=== PATIENT | female | born 1975 | race Caucasian/White ===

== ENCOUNTER 2016-10-28 10:39 | Inpatient (IN) | payer OTHER ==
[~2016-10-28] VITALS: Ht 162.6 cm; Wt 158.0 kg
[2016-10-28] VITALS (12 sets, daily range): BP systolic 89–121; BP diastolic 58–77
--- NOTE | ~2016-10-28 | EKG ---
[address] [place] [address] ELECTROCARDIOGRAM REPORT Name: NATTY ASENCIO Room #: 240-P ADM IN M.R.#: [id number] Admission: 10/28/16 Attend Phys: Shoaib Guy Discharge: Date of : 73 Report #: [id number] THIS REPORT FOR: //name// [facility] ED Test Date: 2016-10-28 Test Time: 10:44:59 Pat Name: NATTY ASENCIO Department: Room: 240 P Gender: F Clothing Designer: FLORECITA : 1975 Requested By: Shoaib Guy Order Number: [id number] MD: Measurements Intervals [place] Rate: 81 P: 20 KS: 145 QRS: -45 QRSD: 96 T: 35 QT: 409 QTc: 475 Interpretive Statements Sinus rhythm Left anterior fascicular block Borderline low voltage, extremity leads Nonspecific T abnormalities, anterior leads No previous ECG available for comparison [email or web address] By: 1044 1044 Epiphany Epiphany, /EPI
--- NOTE | ~2016-10-28 | EKG ---
[address] [place] [address] ELECTROCARDIOGRAM REPORT Name: NATTY ASENCIO Room #: 240-P ADM IN M.R.#: [id number] Admission: 10/28/16 Attend Phys: Shoaib Guy Discharge: Date of : 73 Report #: [id number] THIS REPORT FOR: //name// [facility] ED Test Date: 2016-10-28 Test Time: 10:44:59 Pat Name: NATTY ASENCIO Department: Room: 240 P Gender: F Rating Officer: FLORECITA : 1975 Requested By: Suri Lorenzo Order Number: [id number] MD: Scott Washington Measurements Intervals [place] Rate: 81 P: 20 WA: 145 QRS: -45 QRSD: 96 T: 35 QT: 409 QTc: 475 Interpretive Statements Sinus rhythm Left anterior fascicular block Borderline low voltage, extremity leads Nonspecific T abnormalities, anterior leads No previous ECG available for comparison Electronically Signed On 10-30-2016 10:51:07 HAND PROFILER by Scott Washington [email or web address] <ELECTRONICALLY SIGNED> By: Scott Washington MD 10/30/16 1051 1044 1044 Scott Washington MD /ANDREA
--- NOTE | ~2016-10-28 | HC ---
[facility] [place] [address] CONSULTATION Name: NATTY ASENCIO Room #: 240-P [facility] IN M.R.#: [id number] Admission: 10/28/16 Attend Phys: Shoaib Guy Discharge: Date of : 73 Report #: [id number] THIS REPORT FOR: //name// CC: David Hurtado Shoaib Guy DATE OF SERVICE: 10/28/2016 PRIMARY CARE PHYSICIAN: None. REFERRAL PHYSICIAN: Shoaib Guy MD REASON FOR REFERRAL: Acute respiratory failure. HISTORY OF PRESENT ILLNESS: The patient is a 40-year-old white female who was brought to the Emergency Room with progressive dyspnea. She is a detention resident. A pulmonary consultation was requested. The patient cannot give any history due to hypersomnolence. According to the health care personal from [facility], the patient has had symptoms for the past week with progressive cough, chest pain and dyspnea. Review of records suggests the patient has a history of chronic respiratory failure. She has had a tracheostomy in the past, which was discontinued. She was last hospitalized at [facility] about a year ago in 10/2015. At present, she is tolerating CPAP. Her tracheostomy site appears to be partially patent. Otherwise, the patient is not able to give any history. PAST MEDICAL HISTORY: Remarkable for history of COPD with chronic respiratory failure, had a chronic tracheostomy apparently decannulated at some point in time since 10/2015, morbid obesity, presumed sleep apnea, probable obesity hypoventilation, diabetes mellitus type 2, schizoaffective disorder, bipolar disorder, borderline personality disorder, dyslipidemia. PAST SURGICAL HISTORY: As mentioned above, status post prior tracheostomy in the past. ALLERGIES: TO HALDOL, REACTIONS UNSPECIFIED. MEDICATIONS: From the detention include, Combivent, Cogentin, Cymbalta, Pepcid, Neurontin, Detrol, gemfibrozil, Glucophage, Respirdal, Lasix, Coumadin, Lexapro, potassium supplements, olanzapine, Topamax, clonazepam, Ultram, aspirin, Flonase, lisinopril, Claritin, Depakote and Senokot S. [facility] [address] [place] [address] CONSULTATION Name: NATTY ASENCIO Room #: 240-P [facility] IN M.R.#: [id number] Admission: 10/28/16 Attend Phys: Shoaib Guy Discharge: Date of : 73 Report #: [id number] FAMILY HISTORY: Noncontributory. SOCIAL HISTORY: The patient is the state, she is a detention resident. There is no history of tobacco or alcohol use. MEDICAL DIRECTIVE: She is a full code blue according to records. Her DPOA is state administrative. REVIEW OF SYSTEMS: Deferred as the patient is quite somnolent at this time. PHYSICAL EXAMINATION: VITAL SIGNS: Temperature is 97.5 degrees Fahrenheit, pulse is 80, respiratory rate is 20, blood pressure is 109/62 mmHg, saturation is 98%. HEENT: Normocephalic, atraumatic. NECK: She does have old tracheostomy site that is partially patent. Scar tissues are noted. CHEST: Breath sounds are distant, fair breath sounds, no wheezes. No rales anteriorly. CARDIOVASCULAR: Heart sounds are distant. No obvious murmurs or gallop. Pulses are 2+/4+ bilaterally. BREASTS: Exam deferred. ABDOMEN: Obese, soft, nontender, no organomegaly or masses felt. RECTAL: Deferred. EXTREMITIES: There is no cyanosis or clubbing, but remarkable. 2+/4+ bilateral pretibial edema. LABORATORY DATA: Arterial blood gas on admission revealed pH 7.28, pCO2 80, pO2 of . WBC is 7000, hemoglobin is 14.1. Electrolytes are normal. Chest x-ray shows bilateral infiltrates, cardiomegaly, small lung volumes. No obvious effusion seen. IMPRESSION: 1. Acute on chronic hypercapnic hypoxic respiratory failure in this 40-year-old morbidly obese white female. Chest x-ray shows bilateral lower lobe infiltrates. She has sleep apnea with probable obesity hypoventilation syndrome. She is somnolent. She has a history of COPD with chronic respiratory failure. The cause of the patient's problem on this admission is likely related to heart failure, possible pneumonia. Underlying obstructive sleep apnea and obesity hypoventilation is likely contributing. 2. Morbid obesity with obesity hypoventilation syndrome. It is unclear if she is on noninvasive positive pressure at a detention. 3. Chronic respiratory failure. Given her multi comorbid conditions including COPD disorder, I recommended we revise tracheostomy and replace tracheostomy tube to assist her in ventilation. She will likely have recurrent respiratory impairment in the future. [facility] [address] [place] [address] CONSULTATION Name: NATTY ASENCIO Room #: 240-P [facility] IN M.R.#: [id number] Admission: 12/28/16 Attend Phys: Shoaib Guy Discharge: Date of : 73 Report #: [id number] 4. History of COPD. We will continue bronchodilators. There is no obvious evidence of exacerbation at this time. 5. Cardiomegaly by chest x-ray. Echocardiogram from 10/2015 showed ejection fraction of 55%, grade 2 diastolic dysfunction, aortic valve being normal, mitral valve was normal, pulmonary artery pressure was not evaluated. 6. Schizoaffective disorder with bipolar component along with borderline personality disorder. 7. Diabetes mellitus type 2. RECOMMENDATION AND DISCUSSION: Agree with noninvasive positive pressure ventilation. We will also continue diuretics, stop broad spectrum antibiotics along with corticosteroids and bronchodilators. I would recommend consulting ENT to revise her tracheostomy site and place a tracheostomy given a history of recurrent respiratory failure along with multi comorbid conditions. DVT and GI prophylaxis is recommended. Thank you for this consultation. <ELECTRONICALLY SIGNED> By: Dhruv Yap MD 10/30/16 1628 1546 2219 Dhruv Yap MD /nt
--- NOTE | ~2016-10-28 | HC ---
[facility] [place] [address] CONSULTATION Name: NATTY ASENCIO Room #: 240-P [facility] IN M.R.#: [id number] Admission: 10/28/16 Attend Phys: Shoaib Guy Discharge: Date of : 73 Report #: [id number] THIS REPORT FOR: //name// CC: David Yap MD DATE OF SERVICE: 10/29/2016 REASON FOR CONSULTATION: Possible tracheostomy revision. HISTORY OF PRESENT ILLNESS: The patient is a 40-year-old female admitted through the emergency room to the ICU with progressive dyspnea. She has a and is a skilled nursing resident. The patient had evidently symptoms of progressive lower respiratory symptoms for the past week and has a history of chronic respiratory failure. Per the patient as there are no outside records available, she has had a previous tracheostomy. The patient describes having a single cannula or tracheostomy tube with probably having a talking valve. She believes that the tracheostomy was discontinued within the last year. No notes available to determine if the patient is chronically on oxygen. PAST MEDICAL HISTORY: Probably notable for COPD and obstructive sleep apnea and at least hypercapnia. The concern is whether she would benefit from a revision of her tracheostomy. The patient has not had history of tobacco abuse or chronic bronchitis and appears to have no issues with eating, drinking water and maintaining good control of her secretions. Presently, she is in the ICU with nasal oxygen cannula running at 7 liters, saturating well and able to carry on a conversation without dyspnea. Her past medical history is notable for the above tracheostomy as well as the morbid obesity, type 2 diabetes, schizoaffective disorder, dyslipidemia and borderline personality disorder. ALLERGIES: She has an allergic reaction to HALDOL. PRESENT MEDICATIONS: Reviewed on the patient's medication list. SOCIAL HISTORY: Notable for no known history of tobacco or alcohol use. PAST SURGICAL HISTORY: No known past surgical history in the neck aside from the tracheostomy. PHYSICAL EXAMINATION: VITAL SIGNS: Taken from the hospital berry. She is afebrile, normotensive, adequately saturation, respiratory rate is 18 and she is not dyspneic. HEENT: Reveals her to be morbidly obese. NECK: The anterior neck demonstrates a rather prominent tracheostomy scar in a [address] [address] CONSULTATION Name: NATTY ASENCIO Room #: 240-[facility] IN M.R.#: [id number] Admission: 10/28/16 Attend Phys: Shoaib Guy Discharge: Date of : 73 Report #: [id number] vertical line. 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 No palpable masses noted in the midline. Oral cavity and oropharynx are unremarkable for any abnormalities. Remainder of the anterior neck palpation normally. LABORATORY DATA: Presently, sodium of 141, potassium of 4.8, CO2 is 37 and BUN of 21. PT was at 18.8 with a 1.8 INR, slightly out of reference range. Last ABG done yesterday with a pH of 7.3 with pO2 of 85, although she was on higher support at that time. Hemoglobin of 13.6; hematocrit of 40.4; normal white count and platelet count is 187,000. ASSESSMENT AND PLAN: The patient with a history of more recently acute with chronic hypercapneic and hypoxic respiratory failure and a morbidly obese female with lower lobe infiltrates present. She is no longer somnolent and at this time that she was on presentation yesterday. I certainly believe that revision of her tracheostomy would be reasonable to assist her ventilation. This will require general anesthetic and I will need to communicate with the referring doctor instead her lower pulmonary infectious condition as well as her cardiac condition will permit her to undergo this somewhat elective procedure. Possibly due to her large size, I will need to check and make sure availability for extra long trachs are available in this hospital setting before scheduling the procedure. Thank you for the consultation. <ELECTRONICALLY SIGNED> By: Draren Soares MD 10/30/16 0737 1652 0342 Darren Soares MD /lupe
--- NOTE | ~2016-10-28 | 2DMMODE ---
[facility] [place] [place] [address] 2 D/M-MODE ECHOCARDIOGRAM Name: NATTY ASENCIO Room #: 240-P [facility] IN M.R.#: [id number] Admission: 10/28/16 Attend Phys: Shoaib Kulkarni Discharge: Date of : 73 Date of Service: 10/29/16 0836 Report #: [id number] THIS REPORT FOR: //name// Transthoracic Echocardiography Ordering physician: Shoaib Guy Referring physician: David Hurtado Jetinder Singh Speech Scientist: LOLA Anderson Indications/History: COPD, SOA, DM, HLP, Morbid obesity. BP: 106 / HR: 80bpm Height: 64in Weight: 347.3lb 56 Study data: M-mode, complete 2D, complete spectral Doppler, and color Doppler. Location: Bedside. Routine. Image quality was poor. The study was technically limited due to poor acoustic window availability, restricted patient mobility, the tracheostomy, and body habitus. Intravenous contrast (Definity) was administered. 2D measurements Normal Normal LVID ED 46.2mm 36-57 IVS ED 10.7mm 6-11 LVID ES 30.4mm 23-40 LVPW ED 10.1mm 6-11 LA volume index 16-28 AoRoot diam ED 32.5mm 21-37 LVOT diameter 18-23 Findings: Left ventricle: The cavity size was normal. Wall thickness was normal. Systolic function was normal. The estimated ejection fraction was in the range of 60% to 65%. Wall motion was normal. Right ventricle: The cavity size was normal. Systolic function was normal. Right atrium: The atrium was normal in size. Left atrium: The atrium was normal in size. Aortic valve: Structurally normal valve. Doppler: There was no stenosis. No regurgitation. Peak velocity: 110.3cm/s (S). [facility] [address] [place] [address] 2 D/M-MODE ECHOCARDIOGRAM Name: NATTY ASENCIO Room #: 240-P [facility] IN M.R.#: [id number] Admission: 10/28/16 Attend Phys: Shoaib Kulkarni Discharge: Date of : 73 Date of Service: 10/29/16 0836 Report #: [id number] Mitral valve: Structurally normal valve. Doppler: There was no evidence for stenosis. No regurgitation. Peak E-wave velocity: 84.5cm/s. Peak gradient: 2.9mm Hg (D). Peak A-wave velocity: 77.8cm/s. Tricuspid valve: Structurally normal valve. Doppler: There was no evidence for stenosis. No regurgitation. Pulmonic valve: Structurally normal valve. Doppler: There was no evidence for stenosis. No regurgitation. Pericardium: There was no pericardial effusion. Aorta: Aortic root: The aortic root was normal in size. Pulmonary artery: Pressure could not be reliably determined due to minimal or absent tricuspid insufficiency jet, but pulmonary hypertension was not suggested. Diastolic function: Normal diastolic function. Systemic veins: Inferior vena cava: The vessel was dilated; the respirophasic diameter changes were blunted (< 50%). Conclusions 1. Procedure narrative: Image quality was poor. The study was technically limited due to poor acoustic window availability, restricted patient mobility, the tracheostomy, and body habitus. Intravenous contrast (Definity) was administered. 2. Left ventricle: The cavity size was normal. Wall thickness was normal. Systolic function was normal. The estimated ejection fraction was in the range of 60% to 65%. 3. Right ventricle: The cavity size was normal. 4. Right atrium: The atrium was normal in size. 5. Aortic valve: Structurally normal valve. 6. Mitral valve: Structurally normal valve. 7. Pulmonary arteries: Pressure could not be reliably determined due to minimal or absent tricuspid insufficiency jet, but pulmonary hypertension was not suggested. 8. Inferior vena cava: The vessel was dilated; the respirophasic diameter changes were blunted (< 50%). <ELECTRONICALLY SIGNED> By: Davide Lai MD 10/29/161921 0836 21 Davide Lai MD /roger
[~2016-10-28 10:39] MED LIST: ASPIRIN EC81 M1 PO; AUGMENTIN 875875 MG PO; BENZTROPINE MES1 MG PO; CLARITIN10 MG PO; COMBIVENT INH; CYMBALTA30 MG PO; DEPAKOTE 250MG250 M1 PO; DETROL LA4 MG PO; DUONEB 2.5-0.5 M3 ML INH; ENOXAPARIN100 MG/11 SUBQ; ENOXAPARIN80 MG/0.1 SUBQ; FLOMAX0.4 MG PO; FLONASE 0.05%50 MCG NASAL; GABAPENTIN 100100 MG PO; GEMFIBROZIL 60600 M1 PO; GLUCAGEN1 MG IM; LASIX 20 MG TAB20 MG PO; LEVAQUIN 250 M250 MG PO; LOPERAMIDE 2 MG2 M1 PO; LORAZEPAM 22 MG/1 ML IM; LORAZEPAM 2MG TA2 M1 PO; METFORMIN HCL500 MG PO; MUCINEX600 MG PO; MUCUS RELIEF400 MG PO; NEURONTIN 300300 M1 PO; OLANZAPINE5 MG PO; OMEPRAZOLE 20 M20 M1 PO; ONDANSETRON HCL4 M2 PO; OXCARBAZEPINE300 MG PO; PEPCID20 MG PO; PREDNISONE 20 M20 MG PO; PRINIVIL20 M1 PO; PRINIVIL20 MG PO; RISPERDAL37.5 MG/2 IM; RISPERDAL4 M1 PO; SENEXON-S TABL1 EACH PO; SENOKOT-S1 TA1 PO; TOPAMAX 100 MG100 MG PO; TRAMADOL 50 MG50 MG PO; TYLENOL325 MG PO; VITAMIN D 5050000 I1 PO; VITAMIN D250000 UNIT PO; ZYPREXA10 MG/VIAL IM
[2016-10-28] MEDS ORDERED: COUMADIN 4 MG TA4 M1 PO (11:04)
[2016-10-28] MEDS ORDERED: LEXAPRO20 MG PO (11:05)
[2016-10-28] MEDS ORDERED: POTASSIUM20 PO (11:06)
[2016-10-28] MEDS ORDERED: OLANZAPINE10 M1 PO (11:08)
[2016-10-28] MEDS ORDERED: TOPAMAX50 MG PO (11:09)
[2016-10-28] MEDS ORDERED: TOPAMAX25 M1 PO (11:09)
[2016-10-28] MEDS ORDERED: CLONAZEPAM 0.50.5 M1 PO (11:10)
[2016-10-28] MEDS ORDERED: COMBIVENT RESPIM4 GM IH (11:10)
[2016-10-28 11:18] LABS: BASOPHILS 0.4 % (0.0-2.0); EOSINOPHILS 0.1 % (0.0-3.0); HEMATOCRIT 42.4 % (37.0-47.0); HEMOGLOBIN 14.1 gm/dL (12.0-15.0); LYMPHOCYTES 15.8 % (24.0-44.0); MCH 32.5 pg (26.0-34.0); MCHC 33.4 % (28.0-37.0); MCV 97.4 fL (80.0-100.0); MONOCYTES 11.9 % (1.0-8.0); PLATELET COUNT 193 thou/uL (150-400); POLYS 71.8 % (36.0-66.0); RBC 4.35 mil/uL (4.20-5.00); RDW 13.6 % (10.5-14.5)
[2016-10-28 11:25] LABS: MANUAL DIFF NO
[2016-10-28 11:30] LABS: ABG SAMPLE TYPE ARTERIAL; BE(vivo) 8.7 mmol/L (-2 to +3); HCO3 38.8 mmol/L (22.0-26.0); LACTATE 1.69 mmol/L (0.5-2.0); O2(CT) 18.4 mL/dL (15.0-23.0); PCO2 84.3 mmHg (35.0-45.0); PO2 92.4 mmHg (80.0-100.0); STICK SITE R.RADIAL; pH 7.281 (7.360-7.450); sO2 95.7 % (92.0-98.0); tCO2 41.4 mmol/L (24.0-30.0)
[2016-10-28 11:31] LABS: VDS NONREBREATHER MASK cc
[2016-10-28 12:25] LABS: CALCIUM 8.2 mg/dL (8.5-10.1); CREATININE 0.9 mg/dL (0.6-1.3); POTASSIUM 4.4 mmol/L (3.5-5.1)
[2016-10-28 15:07] LABS: ABG SAMPLE TYPE ARTERIAL; BE(vivo) 8.3 mmol/L (-2 to +3); HCO3 40.1 mmol/L (22.0-26.0); LACTATE 1.17 mmol/L (0.5-2.0); O2(CT) 18.3 mL/dL (15.0-23.0); O2Hb 93.3 % (92.0-98.0); PO2 90.3 mmHg (80.0-100.0); sO2 94.5 % (92.0-98.0); tCO2 43.2 mmol/L (24.0-30.0)
[2016-10-28 15:09] LABS: PCO2 100.5 mmHg (35.0-45.0); pH 7.219 (7.360-7.450)
[2016-10-28 15:10] LABS: STICK SITE R.RADIAL
[2016-10-28 17:22] LABS: ABG SAMPLE TYPE ARTERIAL; BE(vivo) 6.2 mmol/L (-2 to +3); LACTATE 0.97 mmol/L (0.5-2.0); O2(CT) 17.3 mL/dL (15.0-23.0); O2Hb 94.3 % (92.0-98.0); PCO2 72.8 mmHg (35.0-45.0); PO2 85.6 mmHg (80.0-100.0); STICK SITE R.RADIAL; sO2 95.1 % (92.0-98.0); tCO2 37.3 mmol/L (24.0-30.0)
[2016-10-28 17:23] LABS: Pressure Support 16 cm H20; VDS BIPAP SPONT TIMED cc
[2016-10-29] VITALS (19 sets, daily range): BP systolic 93–140; BP diastolic 43–100
[2016-10-29 03:04] LABS: HEMATOCRIT 40.4 % (37.0-47.0); HEMOGLOBIN 13.6 gm/dL (12.0-15.0); MCH 32.3 pg (26.0-34.0); MCHC 33.8 % (28.0-37.0); MCV 95.7 fL (80.0-100.0); RBC 4.22 mil/uL (4.20-5.00); RDW 13.6 % (10.5-14.5); WBC 7.9 thou/uL (4.0-11.0)
[2016-10-29 03:14] LABS: CALCIUM 8.3 mg/dL (8.5-10.1); POTASSIUM 4.8 mmol/L (3.5-5.1)
[2016-10-29 03:16] LABS: INR 1.8; PROTIME 18.8 Seconds (9.3-11.4)
[2016-10-30] VITALS (17 sets, daily range): BP systolic 111–148; BP diastolic 64–101
[2016-10-30 05:49] LABS: HEMATOCRIT 36.6 % (37.0-47.0); HEMOGLOBIN 12.1 gm/dL (12.0-15.0); MCH 32.1 pg (26.0-34.0); MCHC 33.1 % (28.0-37.0); RBC 3.77 mil/uL (4.20-5.00); RDW 13.8 % (10.5-14.5); WBC 8.7 thou/uL (4.0-11.0)
[2016-10-30 06:03] LABS: INR 1.8; PROTIME 18.4 Seconds (9.3-11.4)
[2016-10-30 06:10] LABS: ALBUMIN 2.5 g/dL (3.4-5.0); CALCIUM 8.3 mg/dL (8.5-10.1); CREATININE 1.2 mg/dL (0.6-1.3); POTASSIUM 3.7 mmol/L (3.5-5.1); TOTAL BILIRUBIN 0.5 mg/dL (<0.1-1.0); TOTAL PROTEIN 6.2 g/dL (6.4-8.2)
[2016-10-31] VITALS (11 sets, daily range): BP systolic 106–123; BP diastolic 60–84
[2016-10-31 04:39] LABS: HEMATOCRIT 37.6 % (37.0-47.0); HEMOGLOBIN 12.7 gm/dL (12.0-15.0); MCH 32.1 pg (26.0-34.0); MCHC 33.6 % (28.0-37.0); MCV 95.5 fL (80.0-100.0); RBC 3.94 mil/uL (4.20-5.00); RDW 13.8 % (10.5-14.5); WBC 6.9 thou/uL (4.0-11.0)
[2016-10-31 04:51] LABS: INR 1.6; PROTIME 16.5 Seconds (9.3-11.4)
[2016-10-31 05:01] LABS: ALBUMIN 2.6 g/dL (3.4-5.0); CALCIUM 8.6 mg/dL (8.5-10.1); CREATININE 1.1 mg/dL (0.6-1.3); POTASSIUM 3.7 mmol/L (3.5-5.1); TOTAL BILIRUBIN 0.6 mg/dL (<0.1-1.0); TOTAL PROTEIN 6.4 g/dL (6.4-8.2)
[2016-11-01 03:38] VITALS: BP 125/65
[2016-11-01 06:09] LABS: ABSOLUTE NEUTROPHILS 5.1 thou/uL (1.4-8.2); BASOPHILS 0.2 % (0.0-2.0); HEMATOCRIT 39.2 % (37.0-47.0); HEMOGLOBIN 12.8 gm/dL (12.0-15.0); LYMPHOCYTES 16.1 % (24.0-44.0); MCH 31.8 pg (26.0-34.0); MCHC 32.6 % (28.0-37.0); MCV 97.8 fL (80.0-100.0); MONOCYTES 8.7 % (1.0-8.0); PLATELET COUNT 186 thou/uL (150-400); RBC 4.01 mil/uL (4.20-5.00); RDW 13.9 % (10.5-14.5); WBC 6.8 thou/uL (4.0-11.0)
[2016-11-01 06:12] LABS: MANUAL DIFF NO
[2016-11-01 06:19] LABS: INR 1.4; PROTIME 14.8 Seconds (9.3-11.4)
[2016-11-01 06:24] LABS: ALBUMIN 2.5 g/dL (3.4-5.0); CALCIUM 8.3 mg/dL (8.5-10.1); PHOSPHORUS 3.7 mg/dL (2.5-4.9); POTASSIUM 3.7 mmol/L (3.5-5.1)
[2016-11-01 08:00] VITALS: BP 109/56
[2016-11-01] MEDS ORDERED: AUGMENTIN 875875 MG PO (12:33)
[2016-11-01 15:18] LABS: ABG SAMPLE TYPE ARTERIAL; BE(vivo) 1.3 mmol/L (-2 to +3); HCO3 26.2 mmol/L (22.0-26.0); LACTATE 1.98 mmol/L (0.5-2.0); O2(CT) 17.9 mL/dL (15.0-23.0); O2Hb 90.4 % (92.0-98.0); PCO2 42.5 mmHg (35.0-45.0); PO2 61.6 mmHg (80.0-100.0); pH 7.408 (7.360-7.450); sO2 91.8 % (92.0-98.0); tCO2 27.5 mmol/L (24.0-30.0)
[2016-11-01 15:19] LABS: ABG COMMENT NO COMPLICATIONS.; STICK SITE R.RADIAL
[2016-11-01] MEDS ORDERED: BIPAP MISCELL (15:47)
[2016-11-01] MEDS ORDERED: OXYGEN MISCELL (15:47)
[2016-11-01 16:00] VITALS: BP 123/64
[2016-11-01 20:21] VITALS: BP 141/75
[2016-11-02 00:01] VITALS: BP 120/56
[2016-11-02 05:20] VITALS: BP 118/63
[2016-11-02 05:47] LABS: ALBUMIN 2.4 g/dL (3.4-5.0); CALCIUM 8.3 mg/dL (8.5-10.1); POTASSIUM 3.4 mmol/L (3.5-5.1)
[2016-11-02 08:00] VITALS: BP 124/66
[2016-11-02 11:43] VITALS: BP 131/66
== END 2016-11-02 15:55 | DRG 177 ==
LOC: ER 10:39 → ICU 12:39 → EROBS 12:39 → ICU 13:58 → 4S 10-31 08:58
PROVIDERS: Emergency Medicine; Hospitalist; Internal Medicine Pulmonary Disease
PROC: 5A09457 Assistance with Respiratory Ventilation, 24-96 Consecutive Hours, Continuous Positive Airway Pressure (ICD-10-PCS; principal; 2016-10-28)
DX: J69.0 Pneumonitis due to inhalation of food and vomit (principal); I50.33 Acute on chronic diastolic (congestive) heart failure; J96.21 Acute and chronic respiratory failure with hypoxia; J96.22 Acute and chronic respiratory failure with hypercapnia; E66.2 Morbid (severe) obesity with alveolar hypoventilation; J44.1 Chronic obstructive pulmonary disease with (acute) exacerbation; E87.0 Hyperosmolality and hypernatremia; Z68.43 Body mass index [BMI] 50.0-59.9, adult; E11.9 Type 2 diabetes mellitus without complications; F25.9 Schizoaffective disorder, unspecified; E78.5 Hyperlipidemia, unspecified; G47.33 Obstructive sleep apnea (adult) (pediatric); K46.9 Unspecified abdominal hernia without obstruction or gangrene; Z88.8 Allergy status to other drugs, medicaments and biological substances; Z93.0 Tracheostomy status; Z79.899 Other long term (current) drug therapy; Z79.01 Long term (current) use of anticoagulants; Z79.82 Long term (current) use of aspirin
CPT/HCPCS: 10078; 10102; 27001

== ENCOUNTER 2017-02-11 18:15 | Inpatient (IN) | payer OTHER ==
[~2017-02-11] VITALS: Ht 165.1 cm; Wt 147.2 kg
--- NOTE | ~2017-02-11 | H ---
[facility] [place] [address] HISTORY AND PHYSICAL Name: NATTY ASENCIO Room #: 244-P [facility] IN M.R.#: [id number] Admission: 02/11/17 Attend Phys: Ryan Michelle MD Discharge: 02/19/17 Date of : 73 Report #: [id number] THIS REPORT FOR: //name// CC: David Michelle ATTENDING PHYSICIAN: Bc Lamar M.D. PRIMARY CARE PHYSICIAN: Dr. David Hurtado. CHIEF COMPLAINT: Altered mental status. HISTORY OF PRESENT ILLNESS: The patient is a 41-year-old morbidly obese female with a history of underlying chronic obstructive pulmonary disease. She lives at a senior care. Apparently, she was brought in by EMS because of altered mental status and lethargy. Per EMS report, patient had been in this state that with significant lethargy for at least 20 hours prior to EMS being called. The patient is on multiple psychiatric medications. She does have chronic obstructive pulmonary disease with documentation of hypoventilation syndrome and hypercapnia. She has actually had a trach placed previously that was removed a few years ago, she was admitted previously here at [facility] in 10/2016 with respiratory failure and hypoventilation syndrome and at that time, it was recommended per pulmonary that she have her trach revised because her hypercapnia was becoming a recurrent tissue. She did not want to have that done at that time, the patient was initially evaluated in the ER. Apparently was somewhat of responsive, by the time she got to the floor, she was completely unresponsive with sluggish pupils and ABG showed severe hypercapnic respiratory failure. She was just transferred down to the ICU where she is on BiPAP. We did give a few doses of romazicon and she was able to open her eyes and slowly squeeze my hands and her vitals have been stable. PAST MEDICAL HISTORY: Bipolar, schizoaffective disorder, chronic airway obstruction, diabetes, hypoventilation, hyperlipidemia, CVA, chronic obstructive pulmonary disease, grade 2 diastolic dysfunction, and obesity. PAST SURGICAL HISTORY: Tracheostomy placement, subsequent removal and otherwise unknown. ALLERGIES: HALDOL UNKNOWN REACTION. HOME MEDICATIONS: Loratadine, Macrobid, Combivent, Xarelto, lisinopril, aspirin, Tylenol, lorazepam 0.5 mg t.i.d., Depakote 250 mg b.i.d., Topamax 50 mg b.i.d. and 100 mg at bedtime, Cymbalta 30 mg at bedtime, Lexapro 40 mg daily, chlorpromazine 25 mg b.i.d. p.r.n., olanzapine 10 mg b.i.d. and q. 6 hours p.r.n., Risperdal 4 mg b.i.d. and 50 mg IM every 2 weeks, Cogentin 0.5 mg b.i.d., potassium 20 mEq daily and Lasix 40 mg daily, Flonase daily, Senna b.i.d. Pepcid 20 mg b.i.d., metformin 500 mg b.i.d., Toviaz 4 mg daily and [facility] [address] [place] [address] HISTORY AND PHYSICAL Name: NATTY ASENCIO Room #: 244-P [facility] IN M.R.#: [id number] Admission: 02/11/17 Attend Phys: Ryan Michelle MD Discharge: 02/19/17 Date of : 73 Report #: [id number] vitamin D weekly. SOCIAL HISTORY: The patient is from a [facility]. She is an ex-smoker. She has used alcohol in the past. Otherwise, unknown. FAMILY HISTORY: Unobtainable due to altered mental status. REVIEW OF SYSTEMS: Unobtainable due to altered mental status. PHYSICAL EXAMINATION: GENERAL: The patient is a somnolent obese female in no acute distress. VITAL SIGNS: Temperature is 37.5, heart rate 89, respirations 24, blood pressure is 152/84, oxygen 92% on BiPAP. HEENT: PERRLA. Initially pupils were sluggish, but after the Romazicon, her pupils are more brisk. They are 4 mm. Oral mucosa is pink and moist. ET tube is now in place. NECK: No JVD noted. CARDIOVASCULAR: Normal S1, S2. No murmurs, rubs or gallops. RESPIRATORY: Breath sounds are very diminished bilaterally. No wheezing or rhonchi. Breathing is nonlabored per vent. She is breathing very shallow. ABDOMEN: Obese, soft, and nontender with hypoactive bowel sounds. VASCULAR: 1+ bilateral lower extremity edema. Pedal pulses are 2+. NEUROLOGIC: The patient is somnolent and she initially was completely unable to arouse. After Romazicon she is able to open her eyes briefly and will squeeze my hands to sound, she is unable to lift her arms or legs up off the bed. SKIN: Intact. No rashes or lesions. LABORATORY DATA: WBC is 12.4, hemoglobin 12.5, platelets 235. Sodium 145, potassium 4.5, BUN 14, creatinine 0.9, glucose 113. LFTs are within normal limits. Lactate is 0.9. ABG showed a pH of 7.09, pCO2 122, pO2 of 71.3 and bicarbonate of 36.6, chest x-ray showed bilateral lower lung infiltrate and atelectasis with a possible small left pleural effusion and UA showed positive nitrite, 1+ leukocyte esterase, few wbc's, many bacteria. ASSESSMENT AND PLAN: Acute on chronic hypercapnic respiratory failure with hypoventilation syndrome and chronic obstructive pulmonary disease. Pulmonary is consulted for further recommendations and for vent management. We will add a Solu-Medrol and breathing treatments and at one point, trach revision was recommended, we will further evaluate for the need to readdress this. We will continue antibiotics consisting of Levaquin and schedule1. breathing treatments. 2. Altered mental status. This is likely combination of metabolic and toxic encephalopathy, we will continue to treat underlying infections and follow up cultures, monitor for improvement, CO2 should improve with the vent. 3. Urinary tract infection. Urine has been sent for culture. Continue Levaquin. [address] [address] HISTORY AND PHYSICAL Name: NATTY ASENCIO Room #: 244-P [facility] IN M.R.#: [id number] Admission: 02/11/17 Attend Phys: Ryan Michelle MD Discharge: 02/19/17 Date of : 73 Report #: [id number] 4. Respiratory acidosis, see #1. 5. Diabetes type 2, add sliding scale insulin and check sugars q. 6 hours while n.p.o. 6. Bipolar disorder, schizoaffective disorder, anxiety and depression. Resume medicines, unable to take p.o. I am not sure if she has been getting too many sedating medicines adding to her hypoventilation issues. She did respond slightly to romazicon. 7. Deep venous thrombosis prophylaxis, place sequential compression devices. 8. Chronic diastolic heart failure. The patient does have grade 2 diastolic dysfunction. We will check a D-dimer and if elevated, give a dose of Lasix since there are bilateral infiltrates seen on chest x-ray. 9. DVT prophylaxis, place sequential compression devices. We will continue to follow the patient closely throughout the hospitalization and make changes based on clinical status. <ELECTRONICALLY SIGNED> By: NELIA Oliver 02/20/17 0433 0558 0705 NELIA Oliver /nt
--- NOTE | ~2017-02-11 | HC ---
[facility] [place] [address] CONSULTATION Name: NATTY ASENCIO Room #: 244-P [facility] IN M.R.#: [id number] Admission: 02/11/17 Attend Phys: Ryan Michelle MD Discharge: Date of : 73 Report #: [id number] THIS REPORT FOR: //name// CC: David Michelle DATE OF SERVICE: 02/13/2017 REASON FOR CONSULTATION: Respiratory failure with need for tracheotomy revision. HISTORY OF PRESENT ILLNESS: The patient is a 41-year-old female who has a history of tracheostomy 2 different times in the past. She most recently had a trach reinserted beginning of the year. She is intubated, ventilated and is not capable of giving a history at this time. past medical history that is available to me in the chart, she was seen by Dr. Soares in October and recommended tracheotomy at that time for hypercapnia and obstructive sleep apnea as well as failure to adequately ventilate with poor secretion control. She had a tracheotomy. Apparently, this was dislodged or removed a week ago. It is unclear as to how this was dislodged or removed, whether the patient did herself or if it was electively removed. There is no history from her care facility available to me at this time. PAST MEDICAL HISTORY: Extensive and significant for morbid obesity, COPD, chronic respiratory failure, sleep disordered breathing, diabetes type 2, schizoaffective disorder, bipolar personality disorder, dyslipidemia. PAST SURGICAL HISTORY: Tracheotomy. ALLERGIES: HALDOL. See her medication list for her extensive list from her medical care facility. FAMILY HISTORY: Noncontributory. SOCIAL HISTORY: She is a johnson of the [facility]. REVIEW OF SYSTEMS: Unobtainable at this time. PHYSICAL EXAMINATION: GENERAL: She is obtunded, nonresponsive and is ventilated. VITAL SIGNS: Stable. HEENT: Head is normocephalic. She has existing tracheostomy that is not capable of admitting a tube at this time. She has secretions coming through the old tracheostomy site. She is morbidly obese. NECK: No other significant adenopathy. [facility] [address] [place] [address] CONSULTATION Name: NATTY ASENCIO Room #: 244-P ADM IN M.R.#: [id number] Admission: 02/11/17 Attend Phys: Ryan Michelle MD Discharge: Date of : 73 Report #: [id number] IMPRESSION: Chronic hypercapnic hypoxic respiratory failure with dislodging of trach 1 week ago with worsening respiratory failure. PLAN: She will need to have revision tracheostomy. She reinserted trach at this time. The patient is a johnson of the [facility] and I have called the person listed as Nehemiah at the number listed [phone] and expect response at some point. By: 1330 [id number] Felton Farmer MD /nt
--- NOTE | ~2017-02-11 | HC ---
[facility] [place] [address] CONSULTATION Name: NATTY ASENCIO Room #: 244-P ADM IN M.R.#: [id number] Admission: 02/11/17 Attend Phys: Ryan Michelle MD Discharge: Date of : 73 Report #: [id number] THIS REPORT FOR: //name// CC: David Michelle PRIMARY PHYSICIAN: Unknown. REFERRAL PHYSICIAN: Dr. Lamar. REASON FOR REFERRAL: Acute respiratory failure. HISTORY OF PRESENT ILLNESS: The patient is a 41-year-old white female with multiple medical problems presents to the emergency room with acute mental status change and lethargy. A pulmonary consultation was requested. The patient is known to this physician from a past hospitalization. She was last hospitalized in 10/16/2016. She was admitted for the same problem with respiratory failure. In short summary, the patient has a history of chronic respiratory failure and had a tracheostomy placed in the past. She was subsequently decannulated. The patient then underwent revision of her tracheostomy due to a history of respiratory problems. She was subsequently dismissed to the nursing facility. History is limited. The patient is quite obtunded. There are no family members. According to the records, the patient was at a baseline at the facility 20 hours prior to presentation. She then developed progressively worsening lethargy Arterial blood gas shows severe hypercapnia with respiratory acidosis. PAST MEDICAL HISTORY: As mentioned above with a history of COPD, chronic respiratory failure, had a chronic tracheostomy in the past, subsequently decannulated again, morbid obesity, presumed sleep disordered breathing, with obesity hypoventilation syndrome, diabetes mellitus type 2, schizoaffective disorder, bipolar disorder, borderline personality disorder along with dyslipidemia. PAST SURGICAL HISTORY: As above, tracheostomy in the past. ALLERGIES: HALDOL, reactions unspecified. HOME MEDICATIONS: [facility] are [facility]. This include, Combivent, Cogentin, Cymbalta, Pepcid, Tylenol, Terol [place], Glucophage, [facility] [address] [place] [address] CONSULTATION Name: NATTY ASENCIO Room #: 244-P [facility] IN M.R.#: [id number] Admission: 02/11/17 Attend Phys: Ryan Michelle MD Discharge: Date of : 73 Report #: [id number] Risperdal, Lasix, Lexapro, potassium chloride, olanzapine, Topamax, clonazepam, Toviaz, Macrodantin, Xarelto, Thorazine, tramadol, aspirin, Flonase, lisinopril, Claritin, vitamin D, Depakote, . FAMILY HISTORY: Noncontributory. The patient is johnson of the state, a public front desk administrator has a durable power of staff attorney, she is a [facility] resident, there is no history of tobacco or alcohol use. Medical directive, according to the DPOA who is a state front desk administrator, she is a full code. REVIEW OF SYSTEMS: Deferred as patient is now intubated. PHYSICAL EXAMINATION: GENERAL: The patient is obtunded, not responsive, on noninvasive ventilation. VITAL SIGNS: Temperature is 97 degrees Fahrenheit, pulse is 85, respiratory rate is 20, blood pressure 132/91 mmHg, saturation 99%. HEENT: Normocephalic, atraumatic. NECK: Supple, without any lymphadenopathy or thyromegaly. CHEST: Breath sounds are decreased bilaterally due to poor effort. CARDIOVASCULAR: Heart sounds are distant. No obvious murmurs or gallop. BREASTS: Exam deferred. ABDOMEN: Obese, soft, nontender, no organomegaly or masses felt. GENITOURINARY AND RECTAL: Deferred. EXTREMITIES: There is no cyanosis or clubbing, remarkable 1/4+ bilateral pretibial edema. LABORATORY: Ultrasound was negative for DVT. Chest x-ray, left lower lobe atelectasis and no infiltrates. Small lung volumes bilaterally. CT head was notable for moderate atrophy without acute process. Sodium 147, potassium 4.5, chloride 109, CO2 is 34, BUN is 14, creatinine 0.7. Liver function test was grossly unremarkable. WBC 12,400, platelets are normal. Arterial blood gas on admission revealed pH 7.09, pCO2 122, pO2 71. Follow arterial blood gas following intubation revealed pH 7.25, pCO2 of 72, pO2 250 on FiO2 100%. IMPRESSION: 1. Acute on chronic hypercapnic hypoxic respiratory failure in this 41-year-old white female with history of chronic recurrent respiratory failure, chronic obstructive pulmonary disease, morbid obesity with presumed obesity hypoventilation syndrome, obstructive sleep apnea. The etiology of present presentation is likely due to obtundation, suspect due to progressive hypoventilation resulting in hypercarbia. The cause of her lethargy is probably related to underlying sleep disorders along with other psychiatric problems. 2. Morbid obesity with probable obesity hypoventilation syndrome along with sleep apnea. Unsure whether the patient is compliant with the use of CPAP. 3. Chronic respiratory failure. The patient again had her tracheostomy tube [facility] [address] [place] [address] CONSULTATION Name: NATTY ASENCIO Room #: 244-P ADM IN M.R.#: [id number] Admission: 02/11/17 Attend Phys: Ryan Michelle MD Discharge: Date of : 73 Report #: [id number] removed since last her admission. I suspect the patient will benefit from a chronic tracheostomy due to ongoing recurrent respiratory failure. Would consider consulting ENT. 4. Chronic obstructive pulmonary disease by history. 5. Chronic diastolic dysfunction. 6. Schizoaffective disorder, bipolar component. 7. Diabetes mellitus type 2. 8. Medical directive, she is johnson of [facility], [facility] is the public front desk administrator, she has been a full code in the past. RECOMMNEDATIONS: We will continue mechanical ventilation, wean as tolerated. As mentioned above, I believe in this patient with history of recurrent respiratory failure, a chronic tracheostomy will be beneficial. Bronchodilators and corticosteroids will be started along with antibiotics. DVT and GI prophylaxis will be addressed. <ELECTRONICALLY SIGNED> By: Dhruv Yap MD 02/12/17 1628 1110 [id number] Dhruv Yap MD /nt
--- NOTE | ~2017-02-11 | P ---
[facility] [place] [address] PROCEDURE REPORT Name: NATTY ASENCIO Room #: 244-P [facility] IN M.R.#: [id number] Admission: 02/11/17 Attend Phys: Ryan Michelle MD Discharge: Date of : 73 Report #: [id number] THIS REPORT FOR: //name// CC: David Michelle PROCEDURE: Emergent intubation. CLINICAL HISTORY: A 41-year-old white female with recurrent respiratory failure, now with severe acute on chronic hypercapnic hypoxic respiratory failure. DESCRIPTION OF PROCEDURE: The patient was given a total 10 mL of Diprivan. Then, a blade was utilized. A 7.5 mm ET tube was then introduced through the vocal cords. A stylet was also utilized. The ET tube was then advanced and was secure at the left around 22 cm. There was normal CO2 discoloration on Capnograph monitor. Followup chest x-ray showed ET tube approximately 3 cm above the robert. The ET tube was advanced about 3-1/2 cm above the robert. ET tube was then advanced approximately 2 cm. Otherwise, the patient tolerated the procedure well. No complications. <ELECTRONICALLY SIGNED> By: Dhruv Yap MD 02/12/17 1628 1117 1153 Dhruv Yap MD /nt
--- NOTE | ~2017-02-11 | H ---
[facility] [place] [address] HISTORY AND PHYSICAL Name: NATTY ASENCIO Room #: 244-P ADM IN M.R.#: [id number] Admission: 02/11/17 Attend Phys: Ryan Michelle MD Discharge: Date of : 73 Report #: [id number] THIS REPORT FOR: //name// For History and Physical, please see office documentation/handwritten note in the patient's medical record. <ELECTRONICALLY SIGNED> By: Stephane Hopson MD 02/19/17 0830 1427 Stephane Hopson MD /
[~2017-02-11 18:15] MED LIST changes: +BIPAP MISCELL; +CLONAZEPAM 0.50.5 M1 PO; +COMBIVENT RESPIM4 GM IH; +COUMADIN 4 MG TA4 M1 PO; +LEXAPRO20 MG PO; +OLANZAPINE10 M1 PO; +OXYGEN MISCELL; +POTASSIUM20 PO; +TOPAMAX25 M1 PO; +TOPAMAX50 MG PO
[2017-02-11 18:17] VITALS: BP 152/84
[2017-02-11 18:59] LABS: URINE BILIRUBIN NEGATIVE (Negative); URINE BLOOD 3+ (Negative); URINE COLOR YELLOW; URINE GLUCOSE-RANDOM* NEGATIVE (Negative); URINE KETONES NEGATIVE (Negative); URINE LEUKOCYTES-REFLEX 1+ (Negative); URINE PROTEIN (DIPSTICK) 2+ (Negative); URINE SPECIFIC GRAVITY 1.025 (1.003-1.035); URINE UROBILINOGEN 0.2 E.U./dl (0.2-1.0)
[2017-02-11 19:01] LABS: HEMOGLOBIN 12.5 gm/dL (12.0-15.0); MANUAL DIFF YES; MCH 31.9 pg (26.0-34.0); MCHC 32.9 g/dL (28.0-37.0); MCV 97.1 fL (80.0-100.0); PLATELET COUNT 235 thou/uL (150-400); RBC 3.92 mil/uL (4.20-5.00); RDW 13.6 % (10.5-14.5); WBC 12.4 thou/uL (4.0-11.0)
[2017-02-11 19:03] LABS: ANION GAP 3 mmol/L (7-16); BUN 14 mg/dL (7-18); CALCIUM 8.3 mg/dL (8.5-10.1); CHLORIDE 108 mmol/L (98-107); CO2 34 mmol/L (21-32); CREATININE 0.9 mg/dL (0.6-1.0); GLUCOSE 113 mg/dL (74-106); POTASSIUM 4.5 mmol/L (3.5-5.1); SODIUM 145 mmol/L (136-145)
[2017-02-11 19:04] LABS: CASTS None Seen /LPF (None Seen); CRYSTALS None Seen /LPF (None Seen); SQUAMOUS 0-3 Few /LPF (0-3); URINE RBC 3-10 Few /HPF (0-2); URINE WBC-REFLEX 6-15 Few /HPF (0-5)
[2017-02-11 19:07] LABS: ALBUMIN 2.6 g/dL (3.4-5.0); ALKALINE PHOSPHATASE 59 U/L (46-116); DIRECT BILIRUBIN < 0.1 mg/dL (<0.1-0.3); SGOT 28 U/L (15-37); SGPT 32 U/L (30-65); TOTAL BILIRUBIN 0.2 mg/dL (<0.1-1.0); TOTAL PROTEIN 6.7 g/dL (6.4-8.2)
[2017-02-11] MEDS ORDERED: TOVIAZ4 M1 PO (19:10)
[2017-02-11] MEDS ORDERED: MACROBID 100 M100 M2 PO (19:11)
[2017-02-11] MEDS ORDERED: XARELTO10 MG PO (19:12)
[2017-02-11] MEDS ORDERED: CHLORPROMAZINE25 M1 PO (19:15)
[2017-02-11] MEDS ORDERED: OLANZAPINE10 MG PO (19:15)
[2017-02-11] MEDS ORDERED: CHLORPROMA25 MG/1 ML IM (19:16)
[2017-02-11] MEDS ORDERED: RISPERDAL1 MG/1 ML IM (19:16)
[2017-02-11 19:21] LABS: ABSOLUTE NEUTROPHILS 9.2 thou/uL (1.4-8.2); TOTAL CELL COUNT 100
[2017-02-11 19:24] LABS: APTT 30.6 Seconds (24.5-32.8); INR 1.1; PROTIME 11.4 Seconds (9.3-11.4)
[2017-02-11 21:07] VITALS: BP 159/77
[2017-02-11 21:25] VITALS: BP 153/67
[2017-02-11 23:02] LABS: ABG SAMPLE TYPE ARTERIAL; BE(vivo) 2.9 mmol/L (-2 to +3); HCO3 36.6 mmol/L (22.0-26.0); LACTATE 0.78 mmol/L (0.5-2.0); O2(CT) 16.8 mL/dL (15.0-23.0); O2Hb 89.9 % (92.0-98.0); PCO2 122.7 mmHg (35.0-45.0); PO2 71.3 mmHg (80.0-100.0); STICK SITE R.BRACHIAL; pH 7.092 (7.360-7.450); sO2 85.7 % (92.0-98.0); tCO2 40.3 mmol/L (24.0-30.0)
[2017-02-11 23:37] VITALS: BP 130/88
[2017-02-11 23:45] VITALS: BP 123/72
[2017-02-12] VITALS (68 sets, daily range): BP systolic 92–162; BP diastolic 55–126
[2017-02-12 01:49] LABS: ABG SAMPLE TYPE ARTERIAL; BE(vivo) 2.2 mmol/L (-2 to +3); HCO3 31.3 mmol/L (22.0-26.0); O2(CT) 18.1 mL/dL (15.0-23.0); O2Hb 98.3 % (92.0-98.0); PCO2 72.6 mmHg (35.0-45.0); STICK SITE RRA; sO2 99.2 % (92.0-98.0); tCO2 33.6 mmol/L (24.0-30.0)
[2017-02-12 01:50] LABS: ABG COMMENT AC20 450 +8 100%; TIDAL VOLUME 450 ml; pH 7.253 (7.360-7.450)
[2017-02-12 03:08] LABS: HEMATOCRIT 37.5 % (37.0-47.0); HEMOGLOBIN 12.3 gm/dL (12.0-15.0); MCH 31.8 pg (26.0-34.0); MCHC 32.7 g/dL (28.0-37.0); MCV 97.2 fL (80.0-100.0); RBC 3.85 mil/uL (4.20-5.00); RDW 13.6 % (10.5-14.5)
[2017-02-12 03:25] LABS: CALCIUM 8.5 mg/dL (8.5-10.1); CREATININE 0.7 mg/dL (0.6-1.0); MAGNESIUM 1.9 mg/dL (1.8-2.4); POTASSIUM 4.5 mmol/L (3.5-5.1)
[2017-02-12 11:11] LABS: ABG SAMPLE TYPE ARTERIAL; BE(vivo) 3.7 mmol/L (-2 to +3); HCO3 29.6 mmol/L (22.0-26.0); LACTATE 0.94 mmol/L (0.5-2.0); PCO2 49.6 mmHg (35.0-45.0); PO2 129.5 mmHg (80.0-100.0); pH 7.393 (7.360-7.450); sO2 98.5 % (92.0-98.0); tCO2 31.1 mmol/L (24.0-30.0)
[2017-02-12 11:12] LABS: STICK SITE R.RADIAL; TIDAL VOLUME 450 ml
[2017-02-12 12:32] LABS: ABSOLUTE NEUTROPHILS 7.3 thou/uL (1.4-8.2); BASOPHILS 0.1 % (0.0-2.0); HEMATOCRIT 36.8 % (37.0-47.0); HEMOGLOBIN 12.4 gm/dL (12.0-15.0); LYMPHOCYTES 10.1 % (24.0-44.0); MCHC 33.5 g/dL (28.0-37.0); MCV 95.3 fL (80.0-100.0); MONOCYTES 6.4 % (1.0-8.0); PLATELET COUNT 224 thou/uL (150-400); POLYS 83.4 % (36.0-66.0); RBC 3.87 mil/uL (4.20-5.00); RDW 13.6 % (10.5-14.5); WBC 8.7 thou/uL (4.0-11.0)
[2017-02-12 12:33] LABS: MANUAL DIFF NO
[2017-02-12 12:50] LABS: ANION GAP 4 mmol/L (7-16); BUN 16 mg/dL (7-18); CALCIUM 8.6 mg/dL (8.5-10.1); CHLORIDE 107 mmol/L (98-107); CO2 35 mmol/L (21-32); CREATININE 0.7 mg/dL (0.6-1.0); GLUCOSE 122 mg/dL (74-106); MAGNESIUM 1.9 mg/dL (1.8-2.4); POTASSIUM 3.8 mmol/L (3.5-5.1); SODIUM 146 mmol/L (136-145); TROPONIN-I < 0.04 ng/mL (<0.04-0.07)
[2017-02-13] VITALS (41 sets, daily range): BP systolic 108–245; BP diastolic 55–231
[2017-02-13 03:17] LABS: ABSOLUTE NEUTROPHILS 6.7 thou/uL (1.4-8.2); BASOPHILS 0.2 % (0.0-2.0); HEMOGLOBIN 12.3 gm/dL (12.0-15.0); LYMPHOCYTES 16.2 % (24.0-44.0); MCH 31.6 pg (26.0-34.0); MCHC 33.1 g/dL (28.0-37.0); MCV 95.3 fL (80.0-100.0); MONOCYTES 9.8 % (1.0-8.0); PLATELET COUNT 234 thou/uL (150-400); POLYS 73.8 % (36.0-66.0); RBC 3.88 mil/uL (4.20-5.00); RDW 13.5 % (10.5-14.5); WBC 9.1 thou/uL (4.0-11.0)
[2017-02-13 03:21] LABS: CALCIUM 8.7 mg/dL (8.5-10.1); CREATININE 0.9 mg/dL (0.6-1.0); MAGNESIUM 1.9 mg/dL (1.8-2.4); POTASSIUM 3.5 mmol/L (3.5-5.1)
[2017-02-13 03:33] LABS: MANUAL DIFF NO
[2017-02-13 05:24] LABS: ABG SAMPLE TYPE ARTERIAL; BE(vivo) 6.6 mmol/L (-2 to +3); LACTATE 1.73 mmol/L (0.5-2.0); O2Hb 95.4 % (92.0-98.0); PCO2 49.3 mmHg (35.0-45.0); PO2 83.9 mmHg (80.0-100.0); sO2 96.4 % (92.0-98.0); tCO2 33.5 mmol/L (24.0-30.0)
[2017-02-13 05:25] LABS: STICK SITE R.RADIAL; TIDAL VOLUME 450 ml
[2017-02-14] VITALS (45 sets, daily range): BP systolic 66–169; BP diastolic 51–135
[2017-02-15] VITALS (33 sets, daily range): BP systolic 116–183; BP diastolic 62–124
[2017-02-15 04:09] LABS: ABSOLUTE NEUTROPHILS 7.9 thou/uL (1.4-8.2); BASOPHILS 0.1 % (0.0-2.0); HEMATOCRIT 39.7 % (37.0-47.0); HEMOGLOBIN 13.3 gm/dL (12.0-15.0); LYMPHOCYTES 14.4 % (24.0-44.0); MCH 31.9 pg (26.0-34.0); MCHC 33.4 g/dL (28.0-37.0); MCV 95.6 fL (80.0-100.0); MONOCYTES 10.4 % (1.0-8.0); PLATELET COUNT 265 thou/uL (150-400); POLYS 75.1 % (36.0-66.0); RBC 4.16 mil/uL (4.20-5.00); RDW 13.5 % (10.5-14.5); WBC 10.6 thou/uL (4.0-11.0)
[2017-02-15 04:18] LABS: ALBUMIN 3.1 g/dL (3.4-5.0); CALCIUM 8.8 mg/dL (8.5-10.1); CREATININE 0.9 mg/dL (0.6-1.0); POTASSIUM 3.4 mmol/L (3.5-5.1); TOTAL BILIRUBIN 0.8 mg/dL (<0.1-1.0); TOTAL PROTEIN 7.6 g/dL (6.4-8.2)
[2017-02-15 04:25] LABS: MANUAL DIFF NO
[2017-02-16] VITALS (20 sets, daily range): BP systolic 103–140; BP diastolic 52–87
[2017-02-16 05:38] LABS: ABSOLUTE NEUTROPHILS 9.7 thou/uL (1.4-8.2); BASOPHILS 0.1 % (0.0-2.0); HEMATOCRIT 37.8 % (37.0-47.0); HEMOGLOBIN 12.5 gm/dL (12.0-15.0); LYMPHOCYTES 11.9 % (24.0-44.0); MCH 31.7 pg (26.0-34.0); MCHC 33.1 g/dL (28.0-37.0); MCV 95.8 fL (80.0-100.0); PLATELET COUNT 239 thou/uL (150-400); RBC 3.94 mil/uL (4.20-5.00); RDW 13.4 % (10.5-14.5); WBC 12.2 thou/uL (4.0-11.0)
[2017-02-16 05:41] LABS: MANUAL DIFF NO
[2017-02-16 05:56] LABS: CALCIUM 8.8 mg/dL (8.5-10.1); CREATININE 0.8 mg/dL (0.6-1.0)
[2017-02-16 06:04] LABS: POTASSIUM 2.9 mmol/L (3.5-5.1)
[2017-02-17] VITALS (19 sets, daily range): BP systolic 113–146; BP diastolic 63–105
[2017-02-17 04:54] LABS: ABSOLUTE NEUTROPHILS 8.3 thou/uL (1.4-8.2); BASOPHILS 0.2 % (0.0-2.0); HEMATOCRIT 38.8 % (37.0-47.0); HEMOGLOBIN 12.9 gm/dL (12.0-15.0); LYMPHOCYTES 13.1 % (24.0-44.0); MCH 31.6 pg (26.0-34.0); MCHC 33.1 g/dL (28.0-37.0); MCV 95.4 fL (80.0-100.0); PLATELET COUNT 241 thou/uL (150-400); POLYS 77.7 % (36.0-66.0); RBC 4.07 mil/uL (4.20-5.00); RDW 13.7 % (10.5-14.5); WBC 10.6 thou/uL (4.0-11.0)
[2017-02-17 05:10] LABS: CALCIUM 8.8 mg/dL (8.5-10.1); CREATININE 0.7 mg/dL (0.6-1.0); POTASSIUM 3.5 mmol/L (3.5-5.1)
[2017-02-17 05:50] LABS: MANUAL DIFF NO
[2017-02-17 10:58] LABS: ABG SAMPLE TYPE ARTERIAL; BE(vivo) 1.9 mmol/L (-2 to +3); HCO3 27.9 mmol/L (22.0-26.0); LACTATE 0.99 mmol/L (0.5-2.0); O2Hb 94.8 % (92.0-98.0); PCO2 49.1 mmHg (35.0-45.0); PO2 84.6 mmHg (80.0-100.0); STICK SITE R.BRACHIAL; pH 7.373 (7.360-7.450); tCO2 29.4 mmol/L (24.0-30.0)
[2017-02-17 10:59] LABS: ABG COMMENT CPAP TRIAL; Pressure Support 8 cm H20
[2017-02-18] VITALS (13 sets, daily range): BP systolic 105–145; BP diastolic 58–86
[2017-02-18 04:45] LABS: BASOPHILS 0.2 % (0.0-2.0); EOSINOPHILS 0.1 % (0.0-3.0); HEMATOCRIT 39.9 % (37.0-47.0); HEMOGLOBIN 13.2 gm/dL (12.0-15.0); MCH 31.3 pg (26.0-34.0); MONOCYTES 7.9 % (1.0-8.0); PLATELET COUNT 280 thou/uL (150-400); POLYS 76.8 % (36.0-66.0); RDW 13.5 % (10.5-14.5); WBC 15.6 thou/uL (4.0-11.0)
[2017-02-18 04:49] LABS: MANUAL DIFF NO
[2017-02-18 04:53] LABS: CALCIUM 8.5 mg/dL (8.5-10.1); CREATININE 0.6 mg/dL (0.6-1.0)
[2017-02-18 05:47] LABS: ABG SAMPLE TYPE ARTERIAL; BE(vivo) 2.7 mmol/L (-2 to +3); HCO3 28.3 mmol/L (22.0-26.0); LACTATE 1.24 mmol/L (0.5-2.0); O2(CT) 19.2 mL/dL (15.0-23.0); O2Hb 88.7 % (92.0-98.0); PO2 58.7 mmHg (80.0-100.0); pH 7.398 (7.360-7.450); sO2 90.2 % (92.0-98.0); tCO2 29.8 mmol/L (24.0-30.0)
[2017-02-18 05:49] LABS: STICK SITE R.RADIAL
[2017-02-19] VITALS: BP 126/87
[2017-02-19 04:00] VITALS: BP 119/67
[2017-02-19 05:07] LABS: ABSOLUTE NEUTROPHILS 8.9 thou/uL (1.4-8.2); BASOPHILS 0.2 % (0.0-2.0); EOSINOPHILS 0.2 % (0.0-3.0); HEMOGLOBIN 13.9 gm/dL (12.0-15.0); LYMPHOCYTES 22.8 % (24.0-44.0); MCH 31.7 pg (26.0-34.0); MCV 96.2 fL (80.0-100.0); MONOCYTES 11.5 % (1.0-8.0); PLATELET COUNT 290 thou/uL (150-400); POLYS 65.3 % (36.0-66.0); RBC 4.37 mil/uL (4.20-5.00); RDW 13.6 % (10.5-14.5); WBC 13.7 thou/uL (4.0-11.0)
[2017-02-19 05:16] LABS: CALCIUM 8.9 mg/dL (8.5-10.1); CREATININE 0.7 mg/dL (0.6-1.0); POTASSIUM 3.6 mmol/L (3.5-5.1)
[2017-02-19 05:58] LABS: MANUAL DIFF NO
[2017-02-19 08:00] VITALS: BP 116/78
[2017-02-19 12:00] VITALS: BP 108/71
[2017-02-19] MEDS ORDERED: CEFDINIR300 MG PO (13:20)
[2017-02-19] MEDS ORDERED: PREDNISONE 10 M10 MG PO (13:21)
== END 2017-02-19 17:45 | DRG 870 ==
LOC: ER 18:15 → EROBS 20:24 → ICU 20:24 → 4S 21:09 → ICU 21:18
PROVIDERS: Emergency Medicine; Hospitalist; Internal Medicine; Internal Medicine Endocrinology, Diabetes & Metabolism; Internal Medicine Pulmonary Disease; Nurse Practitioner Acute Care
PROC: 5A1955Z Respiratory Ventilation, Greater than 96 Consecutive Hours (ICD-10-PCS; principal; 2017-02-12)
PROC: 0BH17EZ Insertion of Endotracheal Airway into Trachea, Via Natural or Artificial Opening (ICD-10-PCS; principal; 2017-02-12)
PROC: 02H633Z Insertion of Infusion Device into Right Atrium, Percutaneous Approach (ICD-10-PCS; 2017-02-15)
DX: A41.9 Sepsis, unspecified organism (principal); J96.21 Acute and chronic respiratory failure with hypoxia; G92 Toxic encephalopathy; I50.33 Acute on chronic diastolic (congestive) heart failure; E43 Unspecified severe protein-calorie malnutrition; J96.22 Acute and chronic respiratory failure with hypercapnia; E66.2 Morbid (severe) obesity with alveolar hypoventilation; N39.0 Urinary tract infection, site not specified; E87.0 Hyperosmolality and hypernatremia; J44.1 Chronic obstructive pulmonary disease with (acute) exacerbation; Z68.43 Body mass index [BMI] 50.0-59.9, adult; F25.0 Schizoaffective disorder, bipolar type; E11.9 Type 2 diabetes mellitus without complications; F60.3 Borderline personality disorder; E78.5 Hyperlipidemia, unspecified; F41.9 Anxiety disorder, unspecified; E87.6 Hypokalemia; B96.29 Other Escherichia coli [E. coli] as the cause of diseases classified elsewhere; K21.9 Gastro-esophageal reflux disease without esophagitis; Z66 Do not resuscitate; Z91.14 Patient's other noncompliance with medication regimen; Z87.891 Personal history of nicotine dependence; Z79.01 Long term (current) use of anticoagulants; Z79.4 Long term (current) use of insulin; Z79.82 Long term (current) use of aspirin; Z79.899 Other long term (current) drug therapy; Z88.8 Allergy status to other drugs, medicaments and biological substances
CPT/HCPCS: 10078; 27000